=== PATIENT | male | born 1995 | race Caucasian/White ===

== ENCOUNTER 2022-04-04 09:36 | Emergency (ER) | payer BC ==
[~2022-04-04] VITALS: Ht 167.6 cm; Wt 64.4 kg
--- NOTE | 2022-04-04 09:40 | NUR ---
RECEIVED PT 26 YRS MALE C/O SOB AND WHEEZZING HX ASTHMA NO ACUTE DISTRESS
--- NOTE | 2022-04-04 09:49 | NUR ---
DR. GALLEGO AT BEDSIDE FOR EVAL.
[2022-04-04] MEDS ORDERED: ALBUTEROL FS 2.5 MG/3 ML VIAL.NEB ONE (09:56)
[2022-04-04] MEDS ORDERED: ALBUTEROL FS 2.5 MG/3 ML VIAL.NEB NEB ONE (10:00)
--- NOTE | 2022-04-04 10:04 | NUR ---
RT AT BED SIDE FOR HHN TX NO DISTRESS HOB 45 % ALL TIME
--- NOTE | 2022-04-04 10:24 | NUR ---
RESTING AT THIS TIME NO CHANGE
--- NOTE | 2022-04-04 11:07 | NUR ---
JUANPABLO AND DEWAYNE WINN SENT TO LAB
[2022-04-04] MEDS ORDERED: ALBU1.257 NEB (12:43)
[2022-04-04 12:49] VITALS: BP 120/88
--- NOTE | 2022-04-04 12:49 | NUR ---
Patient discharged to home in stable condition. Written and verbal after care instructions given. Patient verbalizes understanding of instruction.
== END 2022-04-04 12:50 | disposition home or self-care (01) ==
LOC: ER 09:50
DX: R06.00 Dyspnea, unspecified (principal); Z20.822 Contact with and (suspected) exposure to COVID-19; J45.909 Unspecified asthma, uncomplicated
CPT/HCPCS: 99285; 71045; 87426; 87804 ×2; 94640; C9803

== ENCOUNTER 2023-01-25 21:39 | Emergency (ER) | payer BC, OTHER ==
[~2023-01-25] VITALS: Ht 165.1 cm; Wt 75.7 kg
[~2023-01-25 21:39] MED LIST: ALBU1.257 NEB
[2023-01-25 21:50] VITALS: BP 136/85; TEMP 98
[2023-01-25 22:26] VITALS: O2SAT 98
[2023-01-25] MEDS ORDERED: ALBUTEROL FS 2.5 MG/3 ML VIAL.NEB ONE (22:27)
[2023-01-25] MEDS ORDERED: IPRATROPIUM NEB FS 0.5 MG/2.5 ML AMPUL.NEB ONE (22:27)
[2023-01-25] MEDS ORDERED: ALBUTEROL FS 2.5 MG/3 ML VIAL.NEB NEB ONE (22:30)
[2023-01-25] MEDS ORDERED: IPRATROPIUM NEB FS 0.5 MG/2.5 ML AMPUL.NEB NEB ONE (22:30)
[2023-01-25 22:41] VITALS: O2SAT 100
[2023-01-25] MEDS ORDERED: ALBU18HF2 INH (23:39)
== END 2023-01-25 23:54 | disposition home or self-care (01) ==
LOC: ER 21:40
DX: J98.01 Acute bronchospasm (principal); Z79.899 Other long term (current) drug therapy
CPT/HCPCS: 71045-TC